=== PATIENT | male | born 1965 | race Hispanic/Latino ===

== ENCOUNTER 2018-05-19 14:07 | Emergency (ER) | payer OTHER ==
[~2018-05-19] VITALS: Ht 157.5 cm; Wt 99.3 kg
[2018-05-19] MEDS ORDERED: IBUPROFEN400 MG PO (15:15)
[2018-05-19] MEDS ORDERED: ULTRAM50 MG PO (15:17)
--- NOTE | 2018-05-19 15:27 | Diagnostic Imaging Report ---
LEFT KNEE - 3 Images HISTORY: Pain COMPARISON: None available. FINDINGS: Bones: No acute displaced fracture. No aggressive osseous lesion. Joints: Tricompartmental degenerative changes, most notably mild of the medial compartment. Moderate nonspecific joint effusion. Soft tissues: Otherwise, unremarkable. IMPRESSION: 1. Moderate nonspecific joint effusion. 2. 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 Signed by: Dr. Kiko Valverde D.O., M.M.M. on 05/19/2018 3:23 PM
[2018-05-19 15:41] VITALS: BP 151/91
== END 2018-05-19 15:53 | disposition home or self-care (01) ==
LOC: FSED 14:07
DX: M25.562 Pain in left knee (principal); M17.12 Unilateral primary osteoarthritis, left knee; M71.22 Synovial cyst of popliteal space [Baker], left knee; I10 Essential (primary) hypertension
CPT/HCPCS: 99283

== ENCOUNTER 2020-12-21 18:55 | Emergency (ER) | payer OTHER ==
[~2020-12-21] VITALS: Ht 157.5 cm; Wt 99.3 kg
[~2020-12-21 18:55] MED LIST: IBUPROFEN400 MG PO; ULTRAM50 MG PO
[2020-12-21] MEDS ORDERED: ACETAMINOPHEN500 MG PO (19:20)
[2020-12-21] MEDS ORDERED: IBUPROFEN IB200 MG PO (19:20)
[2020-12-21] MEDS ORDERED: TETANUS/DIPHTHERIA TOX ADULT 0.5 ML SYR IM STA (19:41)
[2020-12-21] MEDS ORDERED: TETANUS/DIPHTHERIA TOX ADULT 0.5 ML SYR ONE (19:54)
[2020-12-21] MEDS ORDERED: DOXYCYCLINE HY100 MG PO (21:35)
[2020-12-21] MEDS ORDERED: CLINDAMYCIN HC150 MG PO (21:35)
== END 2020-12-21 19:52 | disposition home or self-care (01) ==
LOC: FSED 19:30
DX: M79.671 Pain in right foot (principal); S91.331A Puncture wound without foreign body, right foot, initial encounter; W45.0XXA Nail entering through skin, initial encounter; Y93.01 Activity, walking, marching and hiking
CPT/HCPCS: 90471; 90714; 99283